=== PATIENT | female | born 1975 | race Caucasian/White ===

== ENCOUNTER 2024-04-01 08:16 | Observation (INO) ==
[2024-04-01] MEDS: SODIUM CHLORIDE 0.9% 500 ML IV STA (08:39)
--- NOTE | 2024-04-01 08:44 | Emergency Department Note ---
Impression & Plan Acute appendicitis ADMIT ED Provider Note HPI: History obtained from patient. The patient is a 48-year-old female who presents emergency department with a chief complaint of lower abdominal pain and right lower back pain. Patient states her symptoms began overnight at about 2 AM. Patient states that she has had some nausea and an episode of vomiting. On arrival here to the ED the patient is hemodynamically stable, she is afebrile and otherwise appears to be in no acute distress. ROS: - Per HPI Differential Diagnosis: Kidney stone, ovarian cyst, acute appendicitis, ectopic , acute colitis, diverticulitis flare, amongst other potential pathologies. *Outpatient medications and allergy history reviewed. PE: General: Alert HEENT: Normocephalic, trachea midline Eyes: Extraocular eye movement is intact, no scleral erythema Pulmonary: Clear to auscultation bilaterally, no wheezing Cardio: Regular rate and rhythm GI: Abdomen is soft to palpation, there is mild tenderness in lower abdomen to palpation without guarding or rigidity : No suprapubic tenderness MSK: No evidence of trauma or malformation of the extremities, no edema Skin: No evidence of rash Neuro: Alert, no focal deficits Psychiatric: Cooperative INDEPENDENT INTERPRETATIONS: classroom monitor: (As interpreted by myself): - An order was placed for continuous cardiac monitoring - Patient was noted to be in sinus rhythm with a rate of 56 Interventions provided in ED: -IV morphine, IV Zofran, IV fluid bolus, IV Zosyn Medical Decision Making: IV was established and lab work obtained, patient was placed on environmental monitoring specialist. Lab work shows leukocytosis of 22.42, hemoglobin is normal, platelet count is normal, CMP does not show any evidence of any critical findings, urinalysis shows 1+ blood, 1+ leukocyte esterase, with significant pyuria. Bilirubin is elevated at 1.8 but there is no transaminitis. CT imaging of the abdomen pelvis with IV contrast was obtained that shows evidence of acute appendicitis without perforation or abscess. I discussed these findings with on-call general surgery, Dr. Ray, and he is in agreement to evaluate the patient. I discussed the above findings with the patient and she is in agreement for admission for operative intervention. Patient was transported to the operating room in stable condition for further care. Consultants/Discussions held with other healthcare providers: -General Surgery, Dr. Ray Disposition discussion held by myself with: -Patient and at bedside Diagnosis: 1. Acute appendicitis 2. Nausea and vomiting, acute 3. Abdominal pain, acute 4. Leukocytosis, acute Disposition: Admission Bud Cody DO Emergency Medicine Past Med/Surg History Problem List (Updated 04/01/24 @ 15:39 by Bud Cody DO) Encounter for pre-operative examination Acute appendicitis (Acute) Medical History (Updated 04/01/24 @ 15:39 by Bud Cody DO) Palpitations Surgical History History of Social History Smoking Status: Never smoker Feels Safe at Home: Yes Allergies Allergies Allergy/AdvReac Type Severity Reaction Status Date / Time amoxicillin AdvReac Severe Vomiting Verified 04/01/24 12:43 Home Meds Home Medications Medication Instructions Recorded Confirmed metoprolol succinate 25 mg 25 mg PO HS 04/01/24 04/01/24 tablet,extended release 24 hr Results & Data (ED) Vital Signs Vital Signs - 24 hr 04/01/24 08:27 04/01/24 08:57 04/01/24 08:57 Temperature 36.8 C 36.9 C Temperature Source Oral Oral Pulse Rate 68 70 Pulse Rate [Apical] Pulse Rate [Right Finger] 70 Pulse Rhythm Regular Pulse Rhythm [Apical] Pulse Rhythm [Right Finger] Regular Pulse Strength [Apical] Pulse Strength [Right Finger] Normal Respiratory Rate 16 20 20 Respiratory Effort / Characteristics Non-Labored Spontaneous Respiratory Depth Normal Respiratory Pattern Regular Blood Pressure 127/83 Blood Pressure [Left Arm] Blood Pressure [Right Arm] 130/76 Blood Pressure Mean 97 Blood Pressure Mean [Left Arm] Blood Pressure Mean [Right Arm] 94 Blood Pressure Position [Left Arm] Blood Pressure Position [Right Arm] Semi-fowlers Pulse Oximetry 99 100 100 Oxygen Delivery Method Room Air Room Air Room Air Oxygen Flow Rate Sepsis Recent Fever Within 48 Hours No Sepsis New/Unexplained Change in Mental Status N/A Sepsis Action Taken by Nursing No Action Required 04/01/24 09:34 04/01/24 10:17 04/01/24 12:44 Temperature 36.9 C 36.9 C Temperature Source Oral Oral Pulse Rate 55 L 70 Pulse Rate [Apical] Pulse Rate [Right Finger] 70 Pulse Rhythm Pulse Rhythm [Apical] Pulse Rhythm [Right Finger] Regular Pulse Strength [Apical] Pulse Strength [Right Finger] Normal Respiratory Rate 20 20 Respiratory Effort / Characteristics Non-Labored Spontaneous Respiratory Depth Normal Respiratory Pattern Regular Blood Pressure 125/69 Blood Pressure [Left Arm] Blood Pressure [Right Arm] 130/76 Blood Pressure Mean Blood Pressure Mean [Left Arm] Blood Pressure Mean [Right Arm] 94 Blood Pressure Position [Left Arm] Blood Pressure Position [Right Arm] Semi-fowlers Pulse Oximetry 100 100 Oxygen Delivery Method Room Air Room Air Oxygen Flow Rate Sepsis Recent Fever Within 48 Hours Sepsis New/Unexplained Change in Mental Status Sepsis Action Taken by Nursing 04/01/24 12:46 04/01/24 14:27 04/01/24 14:35 Temperature 36.9 C 36.3 C L Temperature Source Oral Temporal Artery Scan Pulse Rate Pulse Rate [Apical] 95 H 87 Pulse Rate [Right Finger] 72 Pulse Rhythm Pulse Rhythm [Apical] Regular Regular Pulse Rhythm [Right Finger] Regular Pulse Strength [Apical] Normal Normal Pulse Strength [Right Finger] Normal Respiratory Rate 18 14 18 Respiratory Effort / Characteristics Non-Labored Spontaneous Non-Labored Spontaneous Non-Labored Spontaneous Respiratory Depth Normal Normal Normal Respiratory Pattern Regular Regular Regular Blood Pressure Blood Pressure [Left Arm] 134/66 109/55 L 118/54 L Blood Pressure [Right Arm] Blood Pressure Mean Blood Pressure Mean [Left Arm] 88 73 75 Blood Pressure Mean [Right Arm] Blood Pressure Position [Left Arm] Semi-fowlers Semi-fowlers Semi-fowlers Blood Pressure Position [Right Arm] Pulse Oximetry 99 100 100 Oxygen Delivery Method Room Air Oxymask Oxymask Oxygen Flow Rate 8 6 Sepsis Recent Fever Within 48 Hours Sepsis New/Unexplained Change in Mental Status Sepsis Action Taken by Nursing 04/01/24 14:45 04/01/24 14:55 Temperature Temperature Source Pulse Rate Pulse Rate [Apical] 89 94 H Pulse Rate [Right Finger] Pulse Rhythm Pulse Rhythm [Apical] Regular Regular Pulse Rhythm [Right Finger] Pulse Strength [Apical] Normal Normal Pulse Strength [Right Finger] Respiratory Rate 14 16 Respiratory Effort / Characteristics Non-Labored Spontaneous Non-Labored Spontaneous Respiratory Depth Normal Normal Respiratory Pattern Regular Regular Blood Pressure Blood Pressure [Left Arm] 116/55 L 118/60 Blood Pressure [Right Arm] Blood Pressure Mean Blood Pressure Mean [Left Arm] 75 79 Blood Pressure Mean [Right Arm] Blood Pressure Position [Left Arm] Semi-fowlers Semi-fowlers Blood Pressure Position [Right Arm] Pulse Oximetry 100 100 Oxygen Delivery Method Oxymask Room Air Oxygen Flow Rate 4 Sepsis Recent Fever Within 48 Hours Sepsis New/Unexplained Change in Mental Status Sepsis Action Taken by Nursing Laboratory Data 04/01/24 08:44 04/01/24 08:44 Lab Results 04/01/24 04/01/24 Range/Units 08:44 09:16 WBC 22.42 H (4.8-10.8) K/ul RBC 4.85 (4.20-5.40) M/uL Hgb 14.3 (12.0-16.0) g/dl Hct 43.8 (37.0-47.0) % MCV 90.3 (80.0-100.0) fL MCH 29.5 (25.0-34.0) pg MCHC 32.6 (32.0-36.0) g/dL RDW Std Deviation 41.1 (36.4-46.3) fL RDW Coeff of Tiffany 12.5 (11.5-14.5) % Plt Count 237 (130-400) K/uL MPV 10.6 (9.4-12.4) fL Immature Gran % (Auto) 0.6 % Neut % (Auto) 91.8 % Lymph % (Auto) 4.5 % [place] % (Auto) 2.7 % Eos % (Auto) 0.1 % Baso % (Auto) 0.3 % Neut # (Auto) 20.59 H (1.40-6.50) K/uL Lymph # (Auto) 1.01 L (1.20-3.40) K/uL [place] # (Auto) 0.60 H (0.11-0.59) K/uL Eos # (Auto) 0.02 (0.00-0.50) K/uL Baso # (Auto) 0.07 (0.00-0.20) K/uL Immature Gran # (Auto) 0.13 (0.01-0.20) K/uL PT 11.9 (9.0-12.0) Seconds INR 1.1 (0.9-1.1) Sodium 136 (136-145) mmol/L Potassium 3.8 (3.5-5.1) mmol/L Chloride 103 (98-107) mmol/L Carbon Dioxide 25 (21-32) mmol/L Anion Gap 8 (3-11) BUN 19 (6-23) mg/dl Creatinine 0.81 (0.6-1.2) mg/dl Est Cr Clr Drug Dosing 82.6 ml/min Est GFR ( Amer) 99.5 ml/min Est GFR (Non-Af Amer) 85.9 ml/min BUN/Creatinine Ratio 23.5 H (10-20) Glucose 120 H (70-99(Fasting)) mg/dl Calcium 9.4 (8.6-10.3) mg/dl Total Bilirubin 1.8 H (0.2-1.0) mg/dl AST 20 (13-39) U/L ALT 16 (7-52) U/L Alkaline Phosphatase 60 (34-104) U/L Total Protein 7.7 (6.0-8.3) gm/dl Albumin 4.8 (3.4-5.0) gm/dl Globulin 2.9 (2.5-4.0) gm/dl Albumin/Globulin Ratio 1.7 (0.9-2) Lipase 18 (11-82) U/L HCG, Qual Negative (Negative) Urine Color Yellow Urine Appearance Cloudy A (Clear) Urine pH 5.5 (4.5-7.5) Ur Specific [place] 1.033 H (1.000-1.030) Urine Protein Trace H (Negative) Urine Glucose (UA) Negative (Negative) Urine Ketones Negative (Negative) Urine Blood 1+ H (Negative) Urine Nitrite Negative (Negative) Urine Bilirubin Negative (Negative) Urine Urobilinogen Negative (Negative) Ur Leukocyte Esterase 1+ H (Negative) Urine WBC (Auto) >50 H (0-5) /hpf Urine RBC (Auto) 6-10 H (0-2) /hpf U Hyaline Cast (Auto) 0-2 (0-2) /lpf U Epithel Cells (Auto) 11-20 H (0-2) /hpf Urine Bacteria (Auto) 2+ H (None Seen) Administered Medications Lactated Ringer's (Lr) 1,000 mls @ 15 mls/hr IV .Q24H JARRED Stop: 05/01/24 12:29 Last Infusion: 04/01/24 13:26 Dose: Infused Documented By: [facility] Admin: 04/01/24 12:55 Dose: 15 mls/hr Documented By: CARRI Discontinued Medications Bupivacaine HCl/Epinephrine Bitart (Bupivacaine/Epinephrine 0.5% Mpf 1:200,000 30 Ml Vial) Confirm Administered Dose 30 ml .ROUTE .STK-MED ONE Stop: 04/01/24 13:43 Last Admin: 04/01/24 14:07 Dose: 20 ml Documented By: MARIANA Sodium Chloride (Nss) 500 mls @ 999 mls/hr IV .Q31M STA Stop: 04/01/24 09:03 Last Admin: 04/01/24 08:39 Dose: 999 mls/hr Documented By: ROMY Piperacillin Sod/Tazobactam Sod (Zosyn) 4.5 gm in 100 mls @ 200 mls/hr IV NOW ONE Stop: 04/01/24 11:06 Last Admin: 04/01/24 11:30 Dose: 200 mls/hr Documented By: TYLER Ioversol (Optiray 320 100ml) 94 ml IV ONCE ONE Stop: 04/01/24 09:43 Last Admin: 04/01/24 09:43 Dose: 94 ml Documented By: BORA Morphine Sulfate (Morphine Sulfate 4 Mg/Ml 1 Ml Carp\Vial) 4 mg IV NOW STA Stop: 04/01/24 11:11 Last Admin: 04/01/24 11:30 Dose: 4 mg Documented By: TYLER Ondansetron HCl (Ondansetron Inj 2 Mg/Ml 2 Ml Vial) 4 mg IV NOW STA Stop: 04/01/24 11:11 Last Admin: 04/01/24 11:30 Dose: 4 mg Documented By: TYLER Imaging Data Radiologist's Impression: Abdomen/Pelvis CT 04/01/24 08:43 CT SCAN OF THE ABDOMEN AND PELVIS WITH IV CONTRAST CLINICAL HISTORY: Lower abdominal pain. Right-sided low back pain. COMPARISON STUDY: No priors. TECHNIQUE: Following the IV administration of 94 cc of Optiray 320, CT scan of the abdomen and pelvis is performed from the lung bases to the proximal femora. Images are reviewed in the axial, sagittal, and coronal planes. IV contrast was administered without complication. A dose lowering technique was utilized adhering to the principles of ALARA. CT DOSE: 469.8 mGy.cm FINDINGS: Lung bases: The heart is normal in size and without pericardial effusion. The lung bases are clear. Liver: The contrast-enhanced liver is normal in size, contour, and attenuation. There is no intrahepatic biliary ductal dilatation. The hepatic veins and portal veins are patent. Gallbladder: Unremarkable. Spleen: Normal in size and attenuation. Pancreas: Unremarkable. Adrenal glands: Unremarkable. Kidneys: The contrast enhanced kidneys are normal in size and without hydronephrosis. The kidneys enhance symmetrically. A 1.3 cm cyst is seen in the left upper pole. Abdominal vasculature: The abdominal aorta is normal in course and caliber. Bowel: There is no bowel obstruction. The appendix is dilated and fluid-filled, measuring up to 13 mm in diameter as seen on axial image #217. A calcified appendicolith is seen at the base of the appendix on image #20 and 13. The appendiceal wall is thickened and there is mild periappendiceal inflammation. Findings are consistent with acute appendicitis. No fluid collection is seen to suggest abscess. Peritoneum: There is no intraperitoneal free air or abdominal ascites. There is a fat-containing umbilical hernia. Lymphadenopathy: None. Pelvic viscera: The bladder, uterus, and adnexa are normal as visualized are 2 bilateral ovarian follicles. There is trace free fluid in the cul-de-sac. Skeletal structures: No lytic or blastic lesions are seen. Mild sclerotic change is noted in the sacroiliac joints. IMPRESSION: 1. Acute appendicitis. 2. There is no evidence of abscess or perforation. 3. Trace free fluid in the cul-de-sac is nonspecific and likely physiologic. ACT 112: Negative or not required by law. Electronically signed by: Manuel Peralta M.D. 04/01/2024 10:31 AM Discharge Plan Visit Data Chief Complaint: Abdominal Pain Stated Complaint: ABD PAIN, VOMITING ED Provider: Bud Cody Discharge Problem: Acute appendicitis Patient Disposition: Admitted As Inpatient Discharge Instructions Interventions: ED Discharge Assessment Last Done: 04/01/24 12:44 Discharge Problem: Acute appendicitis Qualifiers: Acute appendicitis type: other Qualified Code(s): K35.890 - Other acute appendicitis without perforation or gangrene
[2024-04-01 09:07] LABS: Hematocrit (blood only) 43.8 % (37.0-47.0); Hemoglobin 14.3 g/dl (12.0-16.0); Mean Corpuscular Hemoglobin 29.5 pg (25.0-34.0); Mean Corpuscular Hgb Conc 32.6 g/dL (32.0-36.0); Mean Corpuscular Volume 90.3 fL (80.0-100.0); Mean Platelet Volume 10.6 fL (9.4-12.4); Platelet Count 237 K/uL (130-400); RDW Coefficient of Variation 12.5 % (11.5-14.5); RDW Standard Deviation 41.1 fL (36.4-46.3); Red Blood Count 4.85 M/uL (4.20-5.40); White Blood Count 22.42 K/ul (4.8-10.8)
[2024-04-01 09:15] LABS: Appearance Urine Cloudy (Clear); Bacteria Urine Automated 2+ (None Seen); Bilirubin Urine Negative (Negative); Blood Urine 1+ (Negative); Cast Urine Automated 0-2 /lpf (0-2); Color Urine Yellow; Glucose Urine UA Negative (Negative); Ketones Urine Negative (Negative); Leukocyte Esterase Urine 1+ (Negative); Nitrite Urine Negative (Negative); Protein Urine Trace (Negative); Specific Gravity Urine 1.033 (1.000-1.030); Urobilinogen Urine Negative (Negative); WBC Urine Automated >50 /hpf (0-5); pH Urine 5.5 (4.5-7.5)
[2024-04-01 09:22] LABS: Pregnancy Test, Serum Negative (Negative)
[2024-04-01 09:25] LABS: Albumin Globulin Ratio 1.7 (0.9-2); Albumin Level 4.8 gm/dl (3.4-5.0); BUN Creatinine Ratio 23.5 (10-20); Bilirubin,Total 1.8 mg/dl (0.2-1.0); Calcium 9.4 mg/dl (8.6-10.3); Creatinine Clr Calc Pharmacy 82.6 ml/min; Est GFR (African American) 99.5 ml/min; Est GFR (Non-African American) 85.9 ml/min; Globulin 2.9 gm/dl (2.5-4.0); Potassium 3.8 mmol/L (3.5-5.1); Total Protein 7.7 gm/dl (6.0-8.3)
[2024-04-01 09:33] LABS: Basophils # (auto) 0.07 K/uL (0.00-0.20); Basophils % (auto) 0.3 %; Eosinophils # (auto) 0.02 K/uL (0.00-0.50); Eosinophils % (auto) 0.1 %; Immature Granulocytes # (auto) 0.13 K/uL (0.01-0.20); Immature Granulocytes % (auto) 0.6 %; Lymphocytes # (auto) 1.01 K/uL (1.20-3.40); Lymphocytes % (auto) 4.5 %; Monocytes % (auto) 2.7 %; Neutrophils # (auto) 20.59 K/uL (1.40-6.50); Neutrophils % (auto) 91.8 %
[2024-04-01] MEDS: OPTIRAY 320 100ml IV ONE (09:43)
[2024-04-01 10:10] LABS: INR 1.1 (0.9-1.1); Prothrombin Time 11.9 Seconds (9.0-12.0)
--- NOTE | 2024-04-01 10:32 | CT Scan Report ---
CT SCAN OF THE ABDOMEN AND PELVIS WITH IV CONTRAST CLINICAL HISTORY: Lower abdominal pain. Right-sided low back pain. COMPARISON STUDY: No priors. TECHNIQUE: Following the IV administration of 94 cc of Optiray 320, CT scan of the abdomen and pelvi s is performed from the lung bases to the proximal femora. Images are reviewed in the axial, sagittal , and coronal planes. IV contrast was administered without complication. A dose lowering technique wa s utilized adhering to the principles of ALARA. CT DOSE: 469.8 mGy.cm FINDINGS: Lung bases: The heart is normal in size and without pericardial effusion. The lung bases are clear. Liver: The contrast-enhanced liver is normal in size, contour, and attenuation. There is no intrahepa tic biliary ductal dilatation. The hepatic veins and portal veins are patent. Gallbladder: Unremarkable. Spleen: Normal in size and attenuation. Pancreas: Unremarkable. Adrenal glands: Unremarkable. Kidneys: The contrast enhanced kidneys are normal in size and without hydronephrosis. The kidneys enh ance symmetrically. A 1.3 cm cyst is seen in the left upper pole. Abdominal vasculature: The abdominal aorta is normal in course and caliber. Bowel: There is no bowel obstruction. The appendix is dilated and fluid-filled, measuring up to 13 m m in diameter as seen on axial image #217. A calcified appendicolith is seen at the base of the appen danielle on image #20 and 13. The appendiceal wall is thickened and there is mild periappendiceal inflamma tion. Findings are consistent with acute appendicitis. No fluid collection is seen to suggest abscess . Peritoneum: There is no intraperitoneal free air or abdominal ascites. There is a fat-containing umbi lical hernia. Lymphadenopathy: None. Pelvic viscera: The bladder, uterus, and adnexa are normal as visualized are 2 bilateral ovarian foll icles. There is trace free fluid in the cul-de-sac. Skeletal structures: No lytic or blastic lesions are seen. Mild sclerotic change is noted in the sacr oiliac joints. IMPRESSION: 1. Acute appendicitis. 2. There is no evidence of abscess or perforation. 3. Trace free fluid in the cul-de-sac is nonspecific and likely physiologic. ACT 112: Negative or not required by law. Electronically signed by: Manuel Peralta M.D. 04/01/2024 10:31 AM
[2024-04-01] MEDS: MoRPHine SULFATE 4 MG/ML 1 ML CARP\\VIAL IV STA (11:30)
[2024-04-01] MEDS: ONDANSETRON INJ 2 MG/ML 2 ML VIAL IV STA (11:30)
[2024-04-01] MEDS: PIPERACILLIN/TAZOBACTAM 4.5 GM/100 ML BAG IV ONE (11:30)
--- NOTE | 2024-04-01 12:05 | History & Physical Report ---
Date of Service April 01, 2024 Assessment & Plan (1) Acute appendicitis: Plan 48 yo old female with less than 12 hour history of RLQ abdominal pain with CT scan showing uncomplicated appendicitis with appendicolith. Afebrile, hemodynamically stable. Leukocytosis of 22k. Discussed CT findings with patient and and discussed indication for laparoscopic appendectomy. Discussed procedure and risks and expected recovery. Patient elected to proceed with laparoscopic appendectomy today with DR. Ray. Informed consent obtained. NPO. IV zosyn. History of Present Illness Chief Complaint: abdominal pain Primary Care Provider: Lay Enriquez PA-C Daniel is a 48 year old female who presented to ED with complaint of right lower abdominal pain with nausea and vomiting that started this am around 2 am. Woke her up from sleeping. Vomited x 3. NO fevers, chills, chest pain, shortness of breath,diarrhea, blood in stools, or difficulty urinationg. No history of similar abdominal pain. Had some right low back pain late last week. History of emergency c section but no other abdominal surgeries. Allergies Allergy/AdvReac Type Severity Reaction Status Date / Time amoxicillin AdvReac Vomiting Verified 04/01/24 11:56 Home Medications Medication Instructions Recorded Confirmed Type Ondansetron (Zofran Odt *) 4 mg sublingual Q6HR PRN ##20 12/23/09 Rx potassium chloride 20 mEq 20 meq PO DAILY #7 tabs 10/04/23 Rx tablet,extended release metoprolol succinate 25 mg 25 mg PO HS 04/01/24 History tablet,extended release 24 hr Past Med/Surg History Problem List (Updated 04/01/24 @ 12:08 by Kathy Banegas PA-C) Acute appendicitis Medical History Palpitations Social History Smoking Status: Never smoker Feels Safe at Home: Yes Physical Exam Constitutional: WD/WN, vitals as above cooperative and comfortable; no acute distress and not ill appearing Respiratory: normal respiratory effort, lungs clear to auscultation Cardiovascular: RRR, no murmur, no edema Gastrointestinal (Abdomen): Inspection/Auscultation: abdomen normal to inspection; abdomen not distended Percussion/Palpation: + abdomen tender (RLQ) and abdomen soft; no guarding, abdomen not rigid and abdomen not firm Skin: no rashes, warm and dry Psychiatric: A+Ox3, euthymic affect Results & Data Results & Data Vital Signs (Past 12 Hours) Vital Signs Temp Pulse Pulse Resp BP BP Pulse Ox 04/01/24 10:17 36.9 C 70 20 130/76 100 04/01/24 09:34 55 L 04/01/24 08:57 70 20 100 04/01/24 08:57 36.9 C 70 20 130/76 100 04/01/24 08:27 36.8 C 68 16 127/83 99 O2 Del Method 04/01/24 10:17 Room Air 04/01/24 09:34 04/01/24 08:57 Room Air 04/01/24 08:57 Room Air 04/01/24 08:27 Room Air Laboratory Results 04/01/24 04/01/24 Range/Units 09:16 08:44 WBC 22.42 H (4.8-10.8) K/ul RBC 4.85 (4.20-5.40) M/uL Hgb 14.3 (12.0-16.0) g/dl Hct 43.8 (37.0-47.0) % MCV 90.3 (80.0-100.0) fL MCH 29.5 (25.0-34.0) pg MCHC 32.6 (32.0-36.0) g/dL RDW Std Deviation 41.1 (36.4-46.3) fL RDW Coeff of Tiffany 12.5 (11.5-14.5) % Plt Count 237 (130-400) K/uL MPV 10.6 (9.4-12.4) fL Immature Gran % (Auto) 0.6 % Neut % (Auto) 91.8 % Lymph % (Auto) 4.5 % [place] % (Auto) 2.7 % Eos % (Auto) 0.1 % Baso % (Auto) 0.3 % Neut # (Auto) 20.59 H (1.40-6.50) K/uL Lymph # (Auto) 1.01 L (1.20-3.40) K/uL [place] # (Auto) 0.60 H (0.11-0.59) K/uL Eos # (Auto) 0.02 (0.00-0.50) K/uL Baso # (Auto) 0.07 (0.00-0.20) K/uL Immature Gran # (Auto) 0.13 (0.01-0.20) K/uL PT 11.9 (9.0-12.0) Seconds INR 1.1 (0.9-1.1) Sodium 136 (136-145) mmol/L Potassium 3.8 (3.5-5.1) mmol/L Chloride 103 (98-107) mmol/L Carbon Dioxide 25 (21-32) mmol/L Anion Gap 8 (3-11) BUN 19 (6-23) mg/dl Creatinine 0.81 (0.6-1.2) mg/dl Est Cr Clr Drug Dosing 82.6 ml/min Est GFR ( Amer) 99.5 ml/min Est GFR (Non-Af Amer) 85.9 ml/min BUN/Creatinine Ratio 23.5 H (10-20) Glucose 120 H (70-99(Fasting)) mg/dl Calcium 9.4 (8.6-10.3) mg/dl Total Bilirubin 1.8 H (0.2-1.0) mg/dl AST 20 (13-39) U/L ALT 16 (7-52) U/L Alkaline Phosphatase 60 (34-104) U/L Total Protein 7.7 (6.0-8.3) gm/dl Albumin 4.8 (3.4-5.0) gm/dl Globulin 2.9 (2.5-4.0) gm/dl Albumin/Globulin Ratio 1.7 (0.9-2) Lipase 18 (11-82) U/L HCG, Qual Negative (Negative) Urine Color Yellow Urine Appearance Cloudy A (Clear) Urine pH 5.5 (4.5-7.5) Ur Specific [place] 1.033 H (1.000-1.030) Urine Protein Trace H (Negative) Urine Glucose (UA) Negative (Negative) Urine Ketones Negative (Negative) Urine Blood 1+ H (Negative) Urine Nitrite Negative (Negative) Urine Bilirubin Negative (Negative) Urine Urobilinogen Negative (Negative) Ur Leukocyte Esterase 1+ H (Negative) Urine WBC (Auto) >50 H (0-5) /hpf Urine RBC (Auto) 6-10 H (0-2) /hpf U Hyaline Cast (Auto) 0-2 (0-2) /lpf U Epithel Cells (Auto) 11-20 H (0-2) /hpf Urine Bacteria (Auto) 2+ H (None Seen) Diagnostic Findings CT SCAN OF THE ABDOMEN AND PELVIS WITH IV CONTRAST CLINICAL HISTORY: Lower abdominal pain. Right-sided low back pain. COMPARISON STUDY: No priors. TECHNIQUE: Following the IV administration of 94 cc of Optiray 320, CT scan of the abdomen and pelvis is performed from the lung bases to the proximal femora. Images are reviewed in the axial, sagittal, and coronal planes. IV contrast was administered without complication. A dose lowering technique was utilized adhering to the principles of ALARA. CT DOSE: 469.8 mGy.cm FINDINGS: Lung bases: The heart is normal in size and without pericardial effusion. The lung bases are clear. Liver: The contrast-enhanced liver is normal in size, contour, and attenuation. There is no intrahepatic biliary ductal dilatation. The hepatic veins and portal veins are patent. Gallbladder: Unremarkable. Spleen: Normal in size and attenuation. Pancreas: Unremarkable. Adrenal glands: Unremarkable. Kidneys: The contrast enhanced kidneys are normal in size and without hydronephrosis. The kidneys enhance symmetrically. A 1.3 cm cyst is seen in the left upper pole. Abdominal vasculature: The abdominal aorta is normal in course and caliber. Bowel: There is no bowel obstruction. The appendix is dilated and fluid-filled, measuring up to 13 mm in diameter as seen on axial image #217. A calcified appendicolith is seen at the base of the appendix on image #20 and 13. The appendiceal wall is thickened and there is mild periappendiceal inflammation. Findings are consistent with acute appendicitis. No fluid collection is seen to suggest abscess. Peritoneum: There is no intraperitoneal free air or abdominal ascites. There is a fat-containing umbilical hernia. Lymphadenopathy: None. Pelvic viscera: The bladder, uterus, and adnexa are normal as visualized are 2 bilateral ovarian follicles. There is trace free fluid in the cul-de-sac. Skeletal structures: No lytic or blastic lesions are seen. Mild sclerotic change is noted in the sacroiliac joints. IMPRESSION: 1. Acute appendicitis. 2. There is no evidence of abscess or perforation. 3. Trace free fluid in the cul-de-sac is nonspecific and likely physiologic. Code Status & VTE Plan VTE Prophylaxis Plan VTE Prophylaxis will be ordered: Yes
[2024-04-01] MEDS ORDERED: ONDANSETRON INJ 2 MG/ML 2 ML VIAL ONE (12:39)
[2024-04-01] MEDS ORDERED: LIDOCAINE 2% 2 ML VIAL/AMP(20MG/ML) INFIL ONE (12:39)
[2024-04-01] MEDS ORDERED: DEXAMETHASONE SOD INJ 4 MG/ML VIAL ONE (12:39)
[2024-04-01] MEDS ORDERED: PROPOFOL IV EMULSION 10 MG/ML 20 ML VIAL IV ONE (12:39)
[2024-04-01] MEDS ORDERED: MIDAZOLAM HCL 1 MG/ML 2ML VIAL ONE (12:40)
[2024-04-01] MEDS ORDERED: fentaNYL citrate PF 100 MCG/2 ML VIAL ONE ×2 (12:40→14:05)
[2024-04-01] MEDS ORDERED: ROCURONIUM BROMIDE 10 MG/ML 5 ML VIAL IV ONE (12:41)
[2024-04-01] MEDS ORDERED: LARYING-O-JET KIT (LTA) ONE (12:41)
[2024-04-01] MEDS ORDERED: ATROPINE SULFATE 0.1 MG/ML 10ML SYR IV PRN (12:46)
[2024-04-01] MEDS ORDERED: fentaNYL citrate PF 100 MCG/2 ML VIAL IV PRN (12:46)
[2024-04-01] MEDS ORDERED: HYDROmorphone INJ 1 MG/ML SYRINGE IV PRN (12:46)
[2024-04-01] MEDS ORDERED: ONDANSETRON INJ 2 MG/ML 2 ML VIAL IV PRN ×2 (12:46→15:20)
[2024-04-01] MEDS ORDERED: ePHEDrine sulfate 50 MG/ML AMP IV PRN (12:46)
[2024-04-01] MEDS ORDERED: PROMETHAZINE HCL 6.25 MG in SODIUM CHLORIDE 0.9% 50 ML IV PRN (12:46)
--- NOTE | 2024-04-01 12:53 | Anesthesiology Consultation ---
Date of Service April 01, 2024 Assessment & Plan (1) Encounter for pre-operative examination: Chart Review Chart Review: Acceptable Risk for Surgery and Patient NOT seen in Pre Admission Testing Consults Requested none History Surgery Operation Date: 04/01/24 10:50 Proposed Procedures p Laparoscopic Appendectomy - Rigoberto Ray MD Height/Weight Height: 5 ft 7 in Weight: 62.8 kg Allergies Allergy/AdvReac Type Severity Reaction Status Date / Time amoxicillin AdvReac Severe Vomiting Verified 04/01/24 12:43 Medications Home Medications Medication Instructions Recorded Confirmed Last Taken metoprolol succinate 25 mg 25 mg PO HS 04/01/24 04/01/24 03/31/24 21:30 tablet,extended release 24 hr NPO Date Last Intake of Fluids: 04/01/24 Time Last Intake of Fluids: 07:00 Last Intake of Fluids Comment: Sip water Date Last Intake of Solids: 03/31/24 Time Last Intake of Solids: 19:00 Past Medical History Medical History (Updated 04/01/24 @ 12:53 by Benito Solis MD) Palpitations Exercise / Class Metabolic Activity 1 > 8 Run/Swim/Ski/Tennis Past Surgical History Surgical History History of Past Anesthesia History No Hx of Anesthesia Complications and No Family Hx of Anesthesia Complications History of PONV No Hx of PONV and No Hx of Motion Sickness Social History Smoking Status: Never smoker Physical Exam Vital Signs Last Vital Signs Temp 36.9 C 04/01/24 12:44 Pulse 70 04/01/24 12:44 Resp 20 04/01/24 12:44 BP 125/69 04/01/24 12:44 Pulse Ox 100 04/01/24 12:44 O2 Del Method Room Air 04/01/24 12:44 Testing Laboratory Results 04/01/24 08:44 04/01/24 08:44 PT 11.9 Seconds (9.0-12.0) 04/01/24 09:16 INR 1.1 (0.9-1.1) 04/01/24 09:16 Urine Color Yellow 04/01/24 08:44 Urine Appearance Cloudy (Clear) A 04/01/24 08:44 Urine pH 5.5 (4.5-7.5) 04/01/24 08:44 Ur Specific Basye 1.033 (1.000-1.030) H 04/01/24 08:44 Urine Protein Trace (Negative) H 04/01/24 08:44 Urine Glucose (UA) Negative (Negative) 04/01/24 08:44 Urine Ketones Negative (Negative) 04/01/24 08:44 Urine Nitrite Negative (Negative) 04/01/24 08:44 Ur Leukocyte Esterase 1+ (Negative) H 04/01/24 08:44 Urine WBC (Auto) >50 /hpf (0-5) H 04/01/24 08:44 Urine RBC (Auto) 6-10 /hpf (0-2) H 04/01/24 08:44 U Hyaline Cast (Auto) 0-2 /lpf (0-2) 04/01/24 08:44 U Epithel Cells (Auto) 11-20 /hpf (0-2) H 04/01/24 08:44 Urine Bacteria (Auto) 2+ (None Seen) H 04/01/24 08:44
[2024-04-01] MEDS: LACTATED RINGER'S 1,000 ML IV SCH ×2 (12:55→16:00)
[2024-04-01] MEDS ORDERED: SUGAMMADEX SODIUM 200 MG/2 ML VIAL IV ONE (13:44)
[2024-04-01] MEDS ORDERED: KETOROLAC 30 MG/ML VIAL ONE (13:52)
[2024-04-01] MEDS: BUPIVACAINE/EPINEPHRINE 0.5% MPF 1:200,000 30 ML VIAL ONE (14:07)
--- NOTE | 2024-04-01 14:13 | Operative Report ---
Post Operative Report Pre & Post Diagnosis Operation Date: 04/01/24 10:50 Pre-Op Diagnosis: Acute appendicitis Post-Op Diagnosis: Acute appendicitis I identified the patient and participated in the time-out.: Yes Procedure Operation Date: 04/01/24 10:50 Actual Procedures p Laparoscopic Appendectomy(Not Applicable) - Rigoberto Ray MD Surgeon Rigoberto Ray MD [employer] Kathy Banegas PA-C Estimated Blood Loss 10 Findings Consistent with Post-Op Diagnosis Specimens Appendix to pathology Drains None Anesthesia Type General Complications none Disposition Accompanied Patient To Recovery: No Indications This is a 48-year-old female seen pain. She had workup showing acute appendicitis this and recommended a laparoscopic of the risks in detail. She wished to proceed with the procedure. Description of Procedure The patient was taken to the OR and underwent excellent general anesthesia. Their abdomen was prepped and draped in normal sterile fashion. A transverse supraumbilical incision was made, towel clamps were used to create tension on the abdominal wall as a Veress needle was inserted gently into the peritoneal cavity. Good pneumoperitoneum was achieved to about 15 mmHg pressure. Once this was done, a visualized 11 port was placed in the supraumbilical position. A 12 mm left lower quadrant port , a 5mm suprapubic port , and a 5mm right upper quadrant port were placed in normal fashion. Patient was then placed in head down and rolled to the left. A good diagnostic lap was performed. They had obvious acute appendicitis. The cecum was grasped with an atraumatic grasper. A grasper was then was then used to grasp the tip of the appendix. The mesoappendix was splayed open and a harmonic scalpel was used to take down the mesoappendix. The base of the appendix was identified and an Endo DIETER stapler was used to transect the appendix at its base. A Endobag was then inserted through the left lower quadrant port and the appendix was placed into the bag, The bag was removed through the left lower quadrant port. The appendix was then sent for pathologic evaluation. Pneumoperitoneum was re-established and the 12 mm port was replaced. Saline was then used to irrigate the abdomen. A clip was placed on the staple line to control a small staple line bleed. There was no active bleeding nor any other abnormalities noted in the abdomen after that. Patient was then placed back in neutral position, the ports were removed and the pneumoperitoneum decompressed. The 12mm port fascia was then closed using a 0 Vicryl. The skin was then anesthetized with 0.5% Marcaine with epinephrine local. Interrupted Vicryl is used to close the skin. Dermabond was used to reinforce the incisions. Sterile dressings were applied. The patient tolerated procedure without complications was sent to the postop recovery period of observation. They will be sent to the floor for the rest of their care. Kathy Banegas PA-C was present and participated in the entire procedure. She was integral in skin closure, retraction, and camera manipulation. There was no qualified resident available to assist. I attest to the content of the Intraoperative Record and any orders documented therein. Any exceptions are noted below.
[2024-04-01] MEDS ORDERED: ACETAMINOPHEN 325 MG TAB PO PRN (15:20)
[2024-04-01] MEDS ORDERED: oxyCODONE/ACETAMINOPHEN 5mg/325mg TAB PO PRN ×2 (15:20)
[2024-04-01] MEDS ORDERED: MoRPHine SULFATE 4 MG/ML 1 ML CARP\\VIAL IV PRN (15:20)
[2024-04-01] MEDS ORDERED: MoRPHine SULFATE 2 MG/ML CARP IV PRN (15:20)
[2024-04-01] MEDS ORDERED: PROMETHAZINE 25 MG/51 ML BAG IV PRN (15:20)
--- OUTSIDE RECORDS SUMMARY | 2024-04-01 15:26 | External Medical Summary | Summary of Care ---
Author Name Unknown Organization [facility] Address [address] [address] Phone [phone] Care Team Providers Care Back Sizer Name Role Phone Lay Enriquez PA-C Primary Care Provider [phone] Reason for Visit * Reason Onset Date Comments Medication Refill 02/10/2024 Encounter Details Date Type Department Care Team (Late st Contact Info) Description 02/10/2024 Refill [facility] [address] [place] [address] Lay Enriquez PA-C [address] [place] [address] SVT (supraventricular tachycardia) ([facility]) Allergies Active Allergy Reactions Criticality Noted Date Comments Amoxicillin Nausea/vomiting 12/04/2013 documented as of this encounter (statuses as of 02/10/2024) Medications Medication Sig Dispensed Refills Start Date End Date Status MULTIVITAL PO TABS one tab daily 1 Tab 0 11/13/2012 Active Align Prebiotic-Probiot ic 5-1.25 MG-GM Oral Tablet Chewable Take by mouth. Active Cetirizine HCl 10 MG Oral Tablet Chewable Take 1 Tablet by mouth in the morning. Active Indomethacin 25 MG Oral Capsule (Indocin)Indicati ons:Pleurisy,Ches t tightness Take 1 Capsule by mouth in the morning and 1 Capsule at noon and 1 Capsule in the evening. with food. 30 Capsule 09/23/2023 Active Metoprolol Succinate ER 25 MG Oral Tablet Extended Release 24 Hour (toPROL XL)Indications:SV T (supraventricular tachycardia) (HCC) Take 1 Tablet by mouth at bedtime. 30 Tablet 5 02/10/2024 Active Metoprolol Succinate ER 25 MG Oral Tablet Extended Release 24 Hour (toPROL XL)Indications:SV T (supraventricular tachycardia) (HCC) Take 1 Tablet by mouth at bedtime. 30 Tablet 5 01/13/2024 02/10/2024 Discontinued (Refill) documented as of this encounter (statuses as of 02/10/2024) Active Problems Problem Noted Date Diagnosed Date OBSTIPATION 12/24/2005 documented as of this encounter (statuses as of 02/10/2024) Resolved Problems Problem Noted Date Diagnosed Date Resolved Date Abnormal mammogram 03/30/2016 8 CHEST PRESSURE 05/10/2010 01/24/2018 ABDOMINAL FULLNESS 12/24/2005 8 documented as of this encounter (statuses as of 02/10/2024) Immunizations Name Administration Dates Next Due PPD 01/03/2021,07/15/2013 Seasonal Influenza, PF, 6 M & above, IM , (FluLaval or Fluzone) 05/13/2022,03/29/2020 Seasonal Influenza, Split, I IV3, With Preserve, Inj 04/13/2015,05/05/2014,05/05/2013, 0 12,05/13/2012,04/21/2011,04/25/2010,04/20 TDAP (age 10 and older)(Boostrix) 01/24/2018 TDAP, Age 7 and older, IM (Adacel) 09/22/2007 documented as of this encounter Social History Tobacco Use Types Packs/Day Years Used Date Smoking Tobacco: Never Smokeless Tobacco: Never Alcohol Use Standard Drinks/Week Comments No 0 (1 standard drink = 0.6 oz pur e alcohol) PHQ-2 Answer Date Recorded PHQ-2 Score 0 05/12/2018 Hunger Vital Sign Answer Date Recorded Within the past 12 months, y ou worried that your food would run out before you got the money to buy more. Never true 02/03/20 24 Within the past 12 months, t he food you bought just didn't last and you didn't have money to get more. Never true 08/10/2023 Childcare Answer Date Recorded Do you feel overwhelmed with taking care of a child, family member or friend? No 08/10/2023 Does your family need help f inding childcare? (Household - for ages 0-17 years) Not on file 08/10/2023 Clothing Answer Date Recorded Have you been unable to get clothing when it was really needed? No 08/10/2023 Is your family able to get c lothes or diapers when needed? (Household - for ages 0-17 years) Not on file 08/10/2023 Personal Safety Answer Date Recorded Do you feel unsafe or have concerns for your saf ety? No 08/10/2023 Do you have concerns for you r family's safety? (Household - for ages 0-17 years) Not on file 08/10/2023 Utilities Answer Date Recorded Do you have trouble paying y our heating, water, or electric bill? No 08/10/2023 Is your family able to pay t he heat, water, or electric bill? (Household - for ages 0-17 years) Not on file 08/10/2023 Does your family have access to good internet? (Household - for ages 0-17 years) Not on file 08/10/2023 Employment Status Answer Date Recorded Are you unemployed or without regular income? No 08/10/2023 Does the household have a re gular source of income? (Household - for ages 0-17 years) Not on file 08/10/2023 Social Connections Answer Date Recorded How often do you feel lonely or isolated from th ose around you? Never 08/10/2023 Financial Resource Strain Answer Date R ecorded Do you have any trouble payi ng for your medications, or do you think you might in the future? No 08/10/2023 Does your family have troubl e paying for medicine? (Household - for ages 0-17 years) Not on file 08/10/2023 Transportation Needs Answer Date Record ed READ ONLY Do you have troubl e getting a ride to medical visits or work? Never True 08/10/2023 Does your family have a hard time getting a ride to doctors visits? (Household - for ages 0-17 years) Not on file 08/10/2023 Has lack of transportation k ept you from medical appointments, meetings, work, or from getting things needed for daily living? Check all that apply. (Adult - for ages 18 years and over) Not on file 08/10/2023 Do you (or your family) have trouble finding or paying for a ride (transportation)? (Household - for ages 0-17 years) Not on file 08/10/2023 Housing Stability Answer Date Recorded Do you currently live in a s helter or have no steady place to sleep at night? No 08/10/2023 READ ONLY Do you think you a re at risk of becoming homeless? No 08/10/2023 Does your family worry about paying for your home or becoming homeless? (Household - for ages 0-17 years) Not on file 0 08/10/2023 Are you homeless or worried that you might be in the future? (Adult - for ages 18 years and over) Not on file Are you (or your family) lavinia eless or worried that you might be in the future? (Household - for ages 0-17 years) Not on file Food Insecurity Answer Date Recorded Do you need food for this week? No 08/10/2023 Are you able to get enough f ood for your family? (Household - for ages 0-17 years) Not on file 08/10/2023 Does your family need food t his week? (Household - for ages 0-17 years) Not on file 08/10/2023 Do you always have enough fo od for your family? (Household - for ages 0-17 years) Not on file 08/10/2023 Sex and Gender Information Value Date Recorded Sex Assigned at Female 08/10/2023 10:44 AM EST Gender Identity Female 08/10/2023 10:44 AM EST Sexual Orientation Straight 08/10/2023 10 :44 AM EST Job Start Date Occupation Industry Not on file Not on file Not on file documented as of this encounter Miscellaneous Notes * Telephone Encounter - Lay Enriquez PA-C - 02/10/2024 2:13 PM EDTSigned Prescriptions: Disp Refills Metoprolol Succinate ER 25 MG Oral Tablet *30 Tab*5 Sig: Take 1 Tablet by mouth at bedtime. Authorizing Provider: LAY ENRIQUEZ * Telephone Encounter - Daniel Whyte OSA - 02/10/2024 12:36 PM EDT Did you pend patient's preferred pharmacy and medication before forwarding?yes Pharmacy: [id number] [address] [facility] Pending Prescriptions: Disp Refills Metoprolol Succinate ER 25 MG Oral Tablet*30 Tab*5 Sig: Take 1 Tablet by mouth at bedtime. Last Visit: 01/10/2024 (in office), Visit date not found (telemedicine) Next Visit: Visit date not found If no future appointments scheduled, and last appointment is greater than a year ago, please schedule patient for a follow-up appointment Last date the medication was ordered: 90 DAY REQUEST Is this request for a controlled substance?No Urine Drug Screen:No results found for this or any previous visit. Patient Phone Numbers Labs: Lab Results Component Value Date/Time CREAT 1.0 06/25/2018 08:53 AM POTASSIUM 3.9 10/22/2023 09:31 AM POTASSIUM 4.4 06/25/2018 08:53 AM TSH 0.68 03/29/2020 10:59 AM LDLCALC 69 01/24/2018 10:38 AM ALT 18 06/25/2018 08:53 AM documented in this encounter Plan of Treatment Scheduled Procedures Name Priority Associated Diagnoses Date/Ti me COLONOSCOPY FLEXIBLE PROXIMA L DIAGNOSTIC Recall Special screening for malignant neoplasms, colon Health Maintenance Due Date Last Done Comments HIV Screening 1990 Hepatitis C Screening 1993 Hepatitis B Vaccine (1 of 3 - 19+ 3-dose series) 1994 HPV/Co-Test 2005 Depression Screening 12/13/2019 12/12/2018 Cologuard 2020 Fecal Occult Blood Test 2020 Sigmoidoscopy 2020 Cervical Cancer Screening 12/12/2021 Pap Smear 12/12/2021 12/12/2018, 11/05, 11/16/2015, Additional history exists Lipid Panel 01/24/2023 01/24/2018, 08/23/2010 COVID-19 Vaccine ( - 2022-24 season) 2023 Influenza Vaccine (FLU shot) (#1) 2024 05/13/2022, 03/29/2020, 04/13/2015, Additional history exists Mammogram 04/29/2024 04/29/2023, 04/07, 04/03/2021, Additional history exists DTaP,Tdap,and Td Vaccines (3 - Td or Tdap) 01/25/2028 01/24/2018, 09/22/2007 Colonoscopy 03/25/2033 03/25/2023, 03/25/2023 Colorectal Cancer Screening 03/25/2033 HPV (Gardasil) Vaccine Aged Out No lo nger eligible based on patient's age to complete this topic MENINGOCOCCAL (MENACTRA/MENVEO) Aged Out No longer eligible based on patient's age to complete this topic Pneumococcal Vaccine: Pediatrics (0 to 5 Years) and At-Risk Patients (6 to 64 Years) Aged Out No longer eligible based on patient's age to complete this topic documented as of this encounter Medical Devices Not on filedocumented as of this encounter Visit Diagnoses Diagnosis SVT (supraventricular tachycardia) (HCC) Other specified cardiac dysrhythmias documented in this encounter Care Teams Back Sizer Relationship Specialty Start Date End Date Lay Enriquez PA-C [address] [facility] [place] [id number] PCP - General Physician Lap Regulator 12/26/17 documented as of this encounter
--- OUTSIDE RECORDS SUMMARY | 2024-04-01 15:26 | External Medical Summary ---
Author Name Unknown Address Unknown Organization [id number]:[facility] [place] - [address] [place] [id number] Laboratory Report Ordering Provider Test Date Status ERIK DON 01/10/2024 09:33:54 Final Observation Date Value Abnormality Reference (Units) Status Bacteria identified in Specimen by Culture 01/10/2024 09:33:54 No significant growth Final Test: Culture, Urine, Quanti tative
Specimen Source: Urine, Clean Catch
Specimen Type: Urine
Specimen Date: 01/10/2024932
Result Date: 01/11/20241001
Result Status: Final result
Resulting Lab: [facility] [place]
[address]
[place] [id number]

CULTURE

No significant growth

null Performing Location [facility] [place] - [address] [place] [id number]
--- OUTSIDE RECORDS SUMMARY | 2024-04-01 15:26 | External Medical Summary | Summary of Care ---
Author Name Unknown Organization [facility] Address [address] [facility] [place] [address] Phone [phone] Care Team Providers Care Blower And Compressor Assembler Name Role Phone Lay Enriquez PA-C Primary Care Provider [phone] [phone] Reason for Visit * Reason Comments Follow Up Chest pressure Encounter Details Date Type Department Care Team (Late st Contact Info) Description 10/22/2023 3:20 PM EDT Office Visit [facility] [address] [place] [address] Lay Enriquez PA-C [address] [place] [address] SVT (supraventricular tachycardia) ([facility])*; PVC (premature ventricular contraction) Allergies Active Allergy Reactions Criticality Noted Date Comments Amoxicillin Nausea/vomiting 12/04/2013 documented as of this encounter (statuses as of 10/22/2023) Medications Medication Sig Dispensed Refills Start Date End Date Status MULTIVITAL PO TABS one tab daily 1 Tab 0 11/13/2012 Active Align Prebiotic-Probiot ic 5-1.25 MG-GM Oral Tablet Chewable Take by mouth. 0 Active Cetirizine HCl 10 MG Oral Tablet Chewable Take 1 Tablet by mouth in the morning. 0 Active Indomethacin 25 MG Oral Capsule (Indocin)Indicati ons:Pleurisy,Ches t tightness Take 1 Capsule by mouth in the morning and 1 Capsule at noon and 1 Capsule in the evening. with food. 30 Capsule 0 09/23/2023 Active Ysfovi-Rqqwa-Luau Ac-Ca Fructo ([facility]) TABS Take by mouth once for 1 dose. 0 01/24/2018 10/22/2023 Discontinued Azithromycin 250 MG Oral Tablet (Zithromax Z-Jori)Indications :Pleurisy,Chest tightness Take two tablets by mouth on first day, then 1 tablet daily until gone 6 Tablet 0 09/23/2023 10/22/2023 Discontinued documented as of this encounter (statuses as of 10/22/2023) Active Problems Problem Noted Date Diagnosed Date OBSTIPATION 12/24/2005 documented as of this encounter (statuses as of 10/22/2023) Resolved Problems Problem Noted Date Diagnosed Date Resolved Date Abnormal mammogram 03/30/2016 8 CHEST PRESSURE 05/10/2010 01/24/2018 ABDOMINAL FULLNESS 12/24/2005 8 documented as of this encounter (statuses as of 10/22/2023) Immunizations Name Administration Dates Next Due PPD 01/03/2021,07/15/2013 Seasonal Influenza, PF, 6 M & above, IM , (FluLaval or Fluzone) 05/13/2022,03/29/2020 Seasonal Influenza, Split, I IV3, With Preserve, Inj 04/13/2015,05/05/2014,05/05/2013, 0 12,05/13/2012,04/21/2011,04/25/2010,04/20 TDAP (age 10 and older)(Boostrix) 01/24/2018 TDAP (age 11 and older)(Adacel) 09/22/2007 documented as of this encounter Social History Tobacco Use Types Packs/Day Years Used Date Smoking Tobacco: Never Smokeless Tobacco: Never Tobacco Cessation:Counseling Given: Not Answered Alcohol Use Standard Drinks/Week Comments No 0 (1 standard drink = 0.6 oz pur e alcohol) PHQ-2 Answer Date Recorded PHQ-2 Score 0 05/12/2018 Hunger Vital Sign Answer Date Recorded Within the past 12 months, y ou worried that your food would run out before you got the money to buy more. Never true 08/10/19 24 Within the past 12 months, t he food you bought just didn't last and you didn't have money to get more. Never true 08/10/2023 Sex and Gender Information Value Date Recorded Sex Assigned at Female 08/10/2023 10:44 AM EST Gender Identity Female 08/10/2023 10:44 AM EST Sexual Orientation Straight 08/10/2023 10 :44 AM EST Job Start Date Occupation Industry Not on file Not on file Not on file documented as of this encounter Last Filed Vital Signs Vital Sign Reading Time Taken Comments Blood Pressure 116/68 10/22/2023 3:13 PM EDT Pulse 80 10/22/2023 3:13 PM EDT Temperature 36.7 C (98 F) 10/22/2023 3:13 PM EDT Respiratory Rate 16 10/22/2023 3:13 PM EDT Oxygen Saturation 97% 10/22/2023 3:13 PM EDT Inhaled Oxygen Concentration - - Weight 62.3 kg (137 lb 6.4 oz) 10/22/2023 3:13 P M EDT Height 170.2 cm (5' 7") 10/22/2023 3:13 PM EDT Body Mass Index 21.52 10/22/2023 3:13 PM EDT documented in this encounter Progress Notes * Lay Enriquez PA-C - 10/22/2023 3:46 PM EDT Images from the original note were not included. History of Present Illness Daniel Peralta is a 48 year old female that presents for Follow Up (Chest pressure ) Here for er f/u Was to [facility] 10/04/2023 Had been noting chest tightness Had zio on for palps She was having more palps, felt fuzzy headed and could not concentrate Was felt to have mild hypokalemia (pot was 3.3) EKG, cxr and trop all normal 10/15/2023 9:27 AM - Interface, Music Cataloguer Narrative & Impression REASON FOR STUDY: chest tightenss, rule out svt vs a fib CONCLUSIONS: Duration: 13 days, 17 hours Final Interpretation Patient had a min HR of 36 bpm, max HR of 164 bpm, and avg HR of 60 bpm. Predominant underlying rhythm was Sinus Rhythm. 3 Supraventricular Tachycardia runs occurred, the run with the fastest interval lasting 9 beats with a max rate of 164 bpm (avg 137 bpm); the run with the fastest interval was also the longest. Isolated SVEs were rare (<1.0%), SVE Couplets were rare (<1.0%), and SVE Triplets were rare (<1.0%). Isolated VEs were occasional (3.6%, [id number]), VE Couplets were rare (<1.0%, 5), and no VE Triplets were present. Ventricular Trigeminy was present. Nine patient triggered events and 12 diary events were submitted for interpretation. Patient eventscorrelate with premature ventricular contractions. Physical Exam Vitals: 10/22/23 1513 Temp: 36.7 C (98 F) Pulse: 80 Resp: 16 SpO2: 97% BP: 116/68 BMI: 21.51 BP Readings from Last 3 Encounters: 10/22/23 116/68 09/26/23 130/78 09/23/23 122/78 Wt Readings from Last 3 Encounters: 10/22/23 62.3 kg (137 lb 6.4 oz) 09/23/23 62.1 kg (137 lb) 08/10/23 63 kg (139 lb) BMI Readings from Last 3 Encounters: 10/22/23 21.52 kg/m 09/23/23 21.46 kg/m 08/10/23 21.76 kg/m Ht Readings from Last 3 Encounters: 10/22/23 1.702 m (5' 7") 09/23/23 1.702 m (5' 7") 08/10/23 1.702 m (5' 7.01") General: alert, healthy, and no distress Head: Normocephalic, No masses, lesions, tenderness or abnormalities Heart: regular rate & rhythm, no murmur, no gallops, S-1 normal, and S-2 normal Lungs: chest symmetric with normal AP diameter, no chest deformities noted, no chest wall tenderness, lungs clear to auscultation Extremities: less than 2 second capillary refill, no joint deformities, effusion, or inflammation Skin: skin color, texture, turgor are normal, no rashes or significant lesions I have reviewed the following results: rev er notes, labs, EKG and cxr Assessment and Plan SVT (supraventricular tachycardia) (HCC) (Primary) PVC (premature ventricular contraction) Wrap-Up Rev er note and such Discuss her zio patch Discuss ways to break svt - valsalva, cough, cold water plunge, carotid massage Time: I spent a total of 20-29 minutes (exact time 29 mins) on the date of service in preparation, delivery, and documentation of the care provided to Daniel Peralta excluding any time spent in the performance of separately billed services. Lay Enriquez PA-C 10/22/2023 4:01 PM documented in this encounter Nursing Notes * Claritza Membreno LPN - 10/22/2023 3:12 PM EDT Daniel Peralta is a 48 year old female who presents today for Chief Complaint Patient presents with Follow Up Chest pressure documented in this encounter Plan of Treatment Scheduled Procedures Name Priority Associated Diagnoses Date/Ti me COLONOSCOPY FLEXIBLE PROXIMA L DIAGNOSTIC Recall Special screening for malignant neoplasms, colon Health Maintenance Due Date Last Done Comments HIV Screening 1990 Hepatitis C Screening 1993 Hepatitis B (1 of 3 - 19+ 3-dose series) 1994 HPV/Co-Test 2005 Depression Screening 12/13/2019 12/12/2018 Cologuard 2020 Fecal Occult Blood Test 2020 Sigmoidoscopy 2020 Cervical Cancer Screening 12/12/2021 Pap Smear 12/12/2021 12/12/2018, 11/05, 11/16/2015, Additional history exists Lipid Panel 01/24/2023 01/24/2018, 08/23/2010 COVID-19 Vaccine ( season) 2023 Influenza Vaccine (FLU shot) (Season Ended) 2024 05/13/2022, 03/29/2020, 04/13/2015, Additional history exists Mammogram 04/29/2024 04/29/2023, 04/07, 04/03/2021, Additional history exists DTaP,Tdap,and Td Vaccines (3 - Td or Tdap) 01/25/2028 01/24/2018, 09/22/2007 Colonoscopy 03/25/2033 03/25/2023, 03/25/2023 Colorectal Cancer Screening 03/25/2033 GARDASIL-HPV IMMUNIZATION SERIES Aged Out No longer eligible based on [...] encounter Visit Diagnoses Diagnosis SVT (supraventricular tachycardia) (HCC)- Primary Other specified cardiac dysrhythmias PVC (premature ventricular contraction) Other premature beats documented in this encounter Care Teams Blower And Compressor Assembler Relationship Specialty Start Date End Date Lay Enriquez PA-C [address] [facility] [place] [address] PCP - General Physician Fur Tailor 12/26/17 documented as of this encounter
--- OUTSIDE RECORDS SUMMARY | 2024-04-01 15:26 | External Medical Summary | Summary of Care ---
Author Name Unknown Organization [facility] Address [address] [facility] [address] Phone [phone] Care Team Providers Care Pressure Vessel Inspector Name Role Phone Lay Enriquez PA-C Primary Care Provider [phone] [phone] Reason for Visit * Reason Comments Outpatient Testing Encounter Details Date Type Department Care Team (Late st Contact Info) Description 10/22/2023 9:50 AM EDT Laboratory Laboratory, [place] [address] [place] [phone] [facility] [address], [place] [id number] Hypokalemia Allergies Active Allergy Reactions Criticality Noted Date Comments Amoxicillin Nausea/vomiting 12/04/2013 documented as of this encounter (statuses as of 10/22/2023) Medications Medication Sig Dispensed Refills Start Date End Date Status MULTIVITAL PO TABS one tab daily 1 Tab 0 11/13/2012 Active Ptyqjc-Evjpe-Awbg Ac-Ca Fructo ([facility]) TABS Take by mouth once for 1 dose. 0 01/24/2018 Active Align Prebiotic-Probiotic 5-1.25 MG-GM Oral Tablet Chewable Take by mouth. 0 Activ e Cetirizine HCl 10 MG Oral Tablet Chewable Take 1 Tablet by mouth in the morning. 0 Active Azithromycin 250 MG Oral Tablet (Zithromax Z-Jori)Indications:Pl eurisy,Chest tightness Take two tablets by mouth on first day, then 1 tablet daily until gone 6 Tablet 0 09/23/2023 Active Indomethacin 25 MG Oral Capsule (Indocin)Indications :Pleurisy,Chest tightness Take 1 Capsule by mouth in the morning and 1 Capsule at noon and 1 Capsule in the evening. with food. 30 Capsule 0 09/23/2023 Active documented as of this encounter (statuses as [...] on file documented as of this encounter Plan of Treatment Upcoming Encounters Date Type Department Care Team (Late st Contact Info) Description 10/22/2023 3:20 PM EDT [facility] [address] [facility] [phone] Lay Enriquez PA-C [address] [facility] [address] Pending Results Name Type Priority Associated Diagnoses Date /Time POTASSIUM Lab Routine Hypokalemia 10/22/2023 9:31 AM EDT Scheduled Procedures Name Priority Associated Diagnoses Date/Ti [...] as of this encounter Visit Diagnoses Diagnosis Hypokalemia Hypopotassemia documented in this encounter Care Teams Pressure Vessel Inspector Relationship Specialty Start Date End Date Lay Enriquez PA-C [address] [facility] [place] [address] PCP - General Physician City Marshal 12/26/17 documented as of this encounter
--- OUTSIDE RECORDS SUMMARY | 2024-04-01 15:26 | External Medical Summary ---
Author Name Unknown Address Unknown Organization K01:[facility] [place] [address] [place] [address] Laboratory Report Ordering Provider Test Date Status ERIK DON 10/22/2023 09:31:17 Final Observation Date Value Abnormality Reference (Units ) Status Potassium 10/22/2023 09:31:17 3.9 3.5-5.1 (m mol/L) Final Performing Location LAB[facility]ATORY [facility] - [address] [place] [address]
--- OUTSIDE RECORDS SUMMARY | 2024-04-01 15:26 | External Medical Summary | Summary of Care ---
Author Name Unknown Organization [facility] Address [address] [facility] [address] Phone [phone] Care Team Providers Care Fitting Room Checker Name Role Phone Lay Enriquez PA-C Primary Care Provider [phone] [phone] Reason for Visit * Reason Comments Urinary Tract Infection Symptoms Pt stat es that she has a possible uti on Saturday night. Pt states that she took AZO, OTC and seems to help with her symptoms Encounter Details Date Type Department Care Team (Late st Contact Info) Description 01/10/2024 9:20 AM EDT Office Visit [facility] [address] [place] [address] Lay Enriquez PA-C [address] [place], [place] [phone] Acute cystitis without hematuria* Allergies Active Allergy Reactions Criticality Noted Date Comments Amoxicillin Nausea/vomiting 12/04/2013 documented as of this encounter (statuses as of 01/10/2024) Medications Medication Sig Dispensed Refills Start Date End Date Status MULTIVITAL PO TABS one tab daily 1 Tab 0 11/13/2012 Active Align Prebiotic-Probiotic 5-1.25 MG-GM Oral Tablet Chewable Take by mouth. Activ e Cetirizine HCl 10 MG Oral Tablet Chewable Take 1 Tablet by mouth in the morning. Active Indomethacin 25 MG Oral Capsule (Indocin)Indication s:Pleurisy,Chest tightness Take 1 Capsule by mouth in the morning and 1 Capsule at noon and 1 Capsule in the evening. with food. 30 Capsule 09/23/2023 Active Pindolol 5 MG Oral TabletIndications:S VT (supraventricular tachycardia) (HCC) One tab by mouth daily in the morning - after 1 week may increase to one tab by mouth twice daily 60 Tablet 5 11/14/2023 Active Sulfamethoxazole-Tr imethoprim 800-160 MG Oral Tablet (Bactrim DS)Indications:Acut e cystitis without hematuria Take 1 Tablet by mouth in the morning and 1 Tablet before bedtime. Do all this for 3 days. Until gone. 6 Tablet 01/10/2024 01/13/2024 Active documented as of this encounter (statuses as of 01/10/2024) Active Problems Problem Noted Date Diagnosed Date OBSTIPATION 12/24/2005 documented as of this encounter (statuses as of 01/10/2024) Resolved Problems Problem Noted Date Diagnosed Date Resolved Date Abnormal mammogram 03/30/2016 8 CHEST PRESSURE 05/10/2010 01/24/2018 ABDOMINAL FULLNESS 12/24/2005 8 documented as of this encounter (statuses as of 01/10/2024) Immunizations Name Administration Dates Next Due PPD [...] No 08/10/2023 Does the household have a unm cancer centerlar source of income? (Household - for ages [...] Sign Reading Time Taken Comments Blood Pressure 112/62 01/10/2024 9:20 AM EDT Pulse 84 01/10/2024 9:20 AM EDT Temperature 36 C (96.8 F) 01/10/2024 9:20 AM EDT Respiratory Rate 16 01/10/2024 9:20 AM EDT Oxygen Saturation 97% 01/10/2024 9:20 AM EDT Inhaled Oxygen Concentration - - Weight 62.7 kg (138 lb 3.2 oz) 01/10/2024 9:20 A M EDT Height 170.2 cm (5' 7") 01/10/2024 9:20 AM EDT Body Mass Index 21.65 01/10/2024 9:20 AM EDT documented in this encounter Progress Notes * Lay Enriquez PA-C - 01/10/2024 9:36 AM EDT Images from the original note were not included. History of Present Illness Daniel Peralta is a 48 year old female that presents for Urinary Tract Infection Symptoms (Pt statesthat she has a possible uti on Saturday night. Pt states that she took AZO, OTC and seems to help with her symptoms ) Saturday at work noted pressure and urinary frequency Stopped on her way home and grabbed azo As the night went on, it got worse Allouez best to sit on the toilet as it relieved the pressure By 10:30 she felt a bit better Took tylenol and chugged water Took again Saturday and felt better Then kept drinking water Saturday a little better Elzbieta pressure Urgency gone Low grade fever and chills Saturday No back pain No vag discharge Physical Exam Vitals: 01/10/24 0920 Temp: 36 C (96.8 F) Pulse: 84 Resp: 16 SpO2: 97% BP: 112/62 BMI: 21.64 BP Readings from Last 3 Encounters: 01/10/24 112/62 10/22/23 116/68 09/26/23 130/78 Wt Readings from Last 3 Encounters: 01/10/24 62.7 kg (138 lb 3.2 oz) 10/22/23 62.3 kg (137 lb 6.4 oz) 09/23/23 62.1 kg (137 lb) BMI Readings from Last 3 Encounters: 01/10/24 21.65 kg/m 10/22/23 21.52 kg/m 09/23/23 21.46 kg/m Ht Readings from Last 3 Encounters: 01/10/24 1.702 m (5' 7") 10/22/23 1.702 m (5' 7") 09/23/23 1.702 m (5' 7") General: alert, healthy, and no distress Head: Normocephalic, No masses, lesions, tenderness or abnormalities Heart: regular rate & rhythm, no murmur, no gallops, S-1 normal, and S-2 normal Lungs: chest symmetric with normal AP diameter, no chest deformities noted, no chest wall tenderness, lungs clear to auscultation Abdomen: abdomen soft, non-tender, normal bowel sounds, and no masses or organomegaly Back: back symmetric, no curvature, no costovertebral angle tenderness, range of motion is normal Extremities: less than 2 second capillary refill, no joint deformities, effusion, or inflammation Skin: skin color, texture, turgor are normal, no rashes or significant lesions I have reviewed the following results: Urinalysis, POC Assessment and Plan UTI (urinary tract infection) (Primary) - URINALYSIS, POINT OF CARE (ENTER/EDIT) - CULTURE, URINE, QUANTITATIVE - Sulfamethoxazole-Trimethoprim 800-160 MG Oral Tablet (Bactrim DS); Take 1 Tablet by mouth in the morning and 1 Tablet before bedtime. Do all this for 3 days. Until gone. Cont push fluids Wrap-Up Time: I spent a total of 10-19 minutes (exact time 12 mins) on the date of service in preparation, delivery, and documentation of the care provided to Daniel Peralta excluding any time spent in the performance of separately billed services. Lay Enriquez PA-C 01/10/2024 9:40 AM documented in this encounter Nursing Notes * Claritza Membreno LPN - 01/10/2024 9:27 AM EDT Daniel Peralta is a 48 year old female who presents today for Chief Complaint Patient presents with Urinary Tract Infection Symptoms Pt states that she has a possible uti on Tien night. documented in this encounter Plan of Treatment Pending Results Name Type Priority Associated Diagnoses Date /Time CULTURE, URINE, QUANTITATIVE Lab Routine Acute cystitis without hematuria 01/10/2024 9:33 AM EDT Scheduled Procedures Name Priority Associated [...] Lipid Panel 01/24/2023 01/24/2018, 08/23/2010 COVID-19 Vaccine (2022- season) 2023 Influenza Vaccine (FLU shot) (#1) [...] Not on filedocumented as of this encounter Procedures Procedure Name Priority Date/Time Associated Diagnosis Comments URINALYSIS, POINT OF CARE (ENTER/EDIT) Routine 01/10/2024 Acute cystitis without hematuria documented in this encounter Results * (ABNORMAL) URINALYSIS, POINT OF CARE (ENTER/EDIT) (01/10/2024) Color, Urine Yellow Yellow or Light Yellow Clarity, Urine Clear Clear Glucose, Urine Negative Negative mg/dL Bilirubin, Urine Negative Negative Ketone, Urine Negative Negative mg/dL Specific [place], Urine 1.015 1.003 - 1.030 Blood, Urine Trace-intact (A) Negative pH, Urine 7.0 5.0 - 7.5 units Protein, Urine Negative Negative mg/dL Urobilinogen, Urine 0.2 0.2 - 1.0 mg/dL Nitrite, Urine Negative Negative Esterase, Urine Negative Negative Urine 01/10/2024 Lay Enriquez PA-C LAB POINT OF CARE TEST ENTER/EDIT ORDERABLES documented in this encounter Visit Diagnoses Diagnosis Acute cystitis without hematuria- Primary Acute cystitis documented in this encounter Care Teams Fitting Room Checker Relationship Specialty Start Date End Date Lay Enriquez PA-C [address] [place] [address] PCP - General Physician Mechanic Marine Engine 12/26/17 documented as of this encounter
--- OUTSIDE RECORDS SUMMARY | 2024-04-01 15:27 | External Medical Summary | Summary of Care ---
Author Name Unknown Organization [facility] Address [address] [facility] [place] [address] Phone [phone] Care Team Providers Care Printing Press Machinist Name Role Phone Lay Enriquez PA-C Primary Care Provider [phone] [phone] Encounter Details Date Type Department Care Team (Late st Contact Info) Description 10/15/2023 Orders Only PATIENT PORTAL DO NOT DELETE THIS DEPT USED BY [facility] [place] [id number] Allergies Active Allergy Reactions Criticality Noted Date Comments Amoxicillin Nausea/vomiting 12/04/2013 documented as of this encounter (statuses as of 10/15/2023) Medications Medication Sig Dispensed Refills Start Date End Date Status MULTIVITAL PO TABS one tab daily 1 Tab 0 11/13/2012 Active Qxhofo-Lcguf-Thih Ac-Ca Fructo ([facility]) [...] as of this encounter (statuses as of 10/15/2023) Active Problems Problem Noted Date Diagnosed Date OBSTIPATION 12/24/2005 documented as of this encounter (statuses as of 10/15/2023) Resolved Problems Problem Noted Date Diagnosed Date Resolved Date Abnormal mammogram 03/30/2016 8 CHEST PRESSURE 05/10/2010 01/24/2018 ABDOMINAL FULLNESS 12/24/2005 8 documented as of this encounter (statuses as of 10/15/2023) Immunizations Name Administration Dates Next Due PPD [...] Care Team (Late st Contact Info) Description 11/05/2023 3:20 PM EDT [facility] [place] [address] [facility] [phone] Lay Enriquez PA-C [address] [facility] [address] Scheduled Procedures Name Priority Associated Diagnoses Date/Ti [...] Not on filedocumented as of this encounter Care Teams Printing Press Machinist Relationship Specialty Start Date End Date Lay Enriquez PA-C [address] [facility] [place] [address] PCP - General Physician Land Reclamation Specialist 12/26/17 documented as of this encounter
--- NOTE | 2024-04-01 15:38 | Anesthesiology Progress Note ---
Date of Service April 01, 2024 Anesthesia Post Procedure Vital Signs Vital Signs: Temp Pulse Pulse Pulse Resp BP BP 04/01/24 14:55 94 H 16 118/60 04/01/24 14:45 89 14 116/55 L 04/01/24 14:35 87 18 118/54 L 04/01/24 14:27 36.3 C L 95 H 14 109/55 L 04/01/24 12:46 36.9 C 72 18 134/66 04/01/24 12:44 36.9 C 70 20 125/69 04/01/24 10:17 36.9 C 70 20 04/01/24 09:34 55 L 04/01/24 08:57 70 20 04/01/24 08:57 36.9 C 70 20 04/01/24 08:27 36.8 C 68 16 127/83 BP Pulse Ox O2 Del Method O2 Flow Rate 04/01/24 14:55 100 Room Air 04/01/24 14:45 100 Oxymask 4 04/01/24 14:35 100 Oxymask 6 04/01/24 14:27 100 Oxymask 8 04/01/24 12:46 99 Room Air 04/01/24 12:44 100 Room Air 04/01/24 10:17 130/76 100 Room Air 04/01/24 09:34 04/01/24 08:57 100 Room Air 04/01/24 08:57 130/76 100 Room Air 04/01/24 08:27 99 Room Air Pain Intensity Lower Abdomen: Pain Intensity: 7 Transfer of Care Handoff Completed per policy Notes Mental Status: alert / awake / arousable and participated in evaluation Patient Amnestic to Procedure: Yes Nausea / Vomiting: adequately controlled Pain: adequately controlled Airway Patency, RR, SpO2: stable & adequate BP & HR: stable & adequate Hydration State: stable & adequate Anesthetic Complications: no major complications apparent and Pt Satisfied with anesthetic care
[2024-04-01] MEDS: cefOXitin 2,000 MG in DEXTROSE 5 % MINI-B 50 ML IV SCH (16:20)
[2024-04-01] MEDS: METOPROLOL SUCC 25MG EXT REL TAB PO SCH (19:47)
[2024-04-02 03:17] VITALS: O2SAT 98
[2024-04-02 08:18] VITALS: BP 97/64; PULSE 58; RESP 16; TEMP 98.2
--- NOTE | 2024-04-02 08:42 | Discharge Summary ---
Date of Service April 02, 2024 Admission HPI Per Admitting Provider Daniel is a 48 year old female who presented to ED with complaint of right lower abdominal pain with nausea and vomiting that started this am around 2 am. Woke her up from sleeping. Vomited x 3. NO fevers, chills, chest pain, shortness of breath,diarrhea, blood in stools, or difficulty urinationg. No history of similar abdominal pain. Had some right low back pain late last week. History of emergency c section but no other abdominal surgeries. Admission Exam Per Admitting Provider Constitutional: WD/WN, vitals as above cooperative and comfortable; no acute distress and not ill appearing Respiratory: normal respiratory effort, lungs clear to auscultation Cardiovascular: RRR, no murmur, no edema Gastrointestinal (Abdomen): Inspection/Auscultation: abdomen normal to inspection; abdomen not distended Percussion/Palpation: + abdomen tender (RLQ) and abdomen soft; no guarding, abdomen not rigid and abdomen not firm Skin: no rashes, warm and dry Psychiatric: A+Ox3, euthymic affect Principal Diagnosis acute appendicitis Discharge Data Allergies Allergy/AdvReac Type Severity Reaction Status Date / Time amoxicillin AdvReac Severe Vomiting Verified 04/01/24 12:43 Consultations 04/01/24 11:47 Consult General Surgery Routine Procedures Performed Operation Date: 04/01/24 10:50 Actual Procedures p Laparoscopic Appendectomy(Not Applicable) - Rigoberto Ray MD Ordered Studies 04/01/24 08:43 CT Abd and Pelvis [CT abd pelvis IV con only] Stat Hospital Course (1) Acute appendicitis: Patient seen in ED with acute appendicitis. She was taken into OR for non- complicated lap appendectomy. She did well post-op with diet and activity. She is discharged POD#1. Total Time Total Time Spent Total Time Spent (In Minutes): 15 Discharge Plan Discharge Items Patient Disposition: Home - Self-Care Reason For Visit: APPENDICITIS Discharge Diagnosis: APPENDICITIS Activity: Per Instructions section Activity Comment: no strenuous activity, 3-4 weeks Lifting: No more than 25 pounds Lifting Comment: 3-4 weeks Bathing: No limitations Bathing Comment: shower as desired, dermabond can peel off in 1-2 weeks Sexual Activity: When tolerated Exercise/Sports: Wait until after follow-up appointment Driving/Machine Use: Resume 1 day after discharge Weightbearing: Full weightbearing Non-emergency contact: Surgeon Call non-emergency contact if: your pain is concerning for you, your temperature is above 101.5 and your wound pain has increased Follow-up/Referrals: Lay Enriquez PA-C [Primary Care Provider] - Diet: Regular Addtl Attending Provider Instructions: appt my clinic 2 weeks Pending Studies at Discharge: No Stand-Alone Forms: My [facility], Smoking Cessation, Important Visit Information Medications and DC Order Prescriptions: New oxycodone-acetaminophen [Percocet] 5-325 mg tablet 1 tab PO Q6H PRN (Reason: pain) Qty: 14 0RF Continued metoprolol succinate 25 mg tablet extended release 24 hr 25 mg PO HS Rx Instructions: filled 03/13 30 day supply Discharge Orders: Discharge Order (Routine); Ordered 04/02/24 Ordered By: Rigoberto Ray Admission Data Admit Date/Time: 04/01/24 15:28 Attending Provider: Rigoberto Ray Admit Provider: Rigoberto Ray Primary Care Provider: Lay Enriquez Other Providers: Rigoberto Ray
== END 2024-04-02 09:41 | disposition home or self-care (01) ==
LOC: ED 08:16 → 3W 12:44 → OR 12:44